=== PATIENT | male | born 1980 | race Caucasian/White ===

== ENCOUNTER 2016-09-27 17:38 | Inpatient (IN) | payer MEDICAID ==
--- NOTE | 2016-09-27 18:30 | C.PDOC ---
History Of Present Illness 35 y/o male presents to emergency department for heroin detox. Patient was pre- screened prior to arrival. He notes that he typically uses 10 bags of heroin per day and that last use was this morning. Patient reports previous detox in the past. Denies any other medical complaints, suicidal ideation, or homicidal ideation. Time Seen by Provider: 09/27/16 18:25 Chief Complaint (Nursing): Substance Abuse History Per: Patient History/Exam Limitations: no limitations Onset/Duration Of Symptoms: Persistent Current Symptoms Are (Timing): Still Present Modifying Factor(s): Narcotics Associated Symptoms: denies: Suicidal Thoughts, Suicidal Plan Recent travel outside of the [place]: No Past Medical History Reviewed: Historical Data, Nursing Documentation, Vital Signs Vital Signs: Last Vital Signs Temp 98.9 F 09/27/16 17:45 Pulse 93 H 09/27/16 17:45 Resp 16 09/27/16 17:45 BP 136/77 09/27/16 17:45 Pulse Ox 97 09/27/16 19:07 - Medical History PMH: No Chronic Diseases Family History: States: Unknown Family Hx - Social History Hx Alcohol Use: No Hx Substance Use: Yes - Immunization History Hx Tetanus Toxoid Vaccination: No Hx Influenza Vaccination: No Review Of Systems Except As Marked, All Systems Reviewed And Found Negative. Constitutional: Negative for: Fever, Chills Cardiovascular: Negative for: Chest Pain, Palpitations Respiratory: Negative for: Cough, Shortness of Breath Skin: Negative for: Rash Psych: Negative for: Suicidal ideation, Withdrawal Physical Exam - Physical Exam Appears: Non-toxic, No Acute Distress Skin: Normal Color, Warm, Dry Head: Atraumatic, Normacephalic Oral Mucosa: Moist Chest: Symmetrical Cardiovascular: Rhythm Regular Respiratory: Normal Breath Sounds, No Rales, No Rhonchi, No Wheezing Gastrointestinal/Abdominal: Soft, No Tenderness, No Guarding, No Rebound Back: Normal Inspection Extremity: Normal ROM, Capillary Refill (< 2 sec. ) Neurological/Psych: Oriented x3, Normal Speech, Normal Cognition ED Course And Treatment - Laboratory Results Result Diagrams: 09/27/16 18:33 09/27/16 18:33 Lab Interpretation: No Acute Changes Interpretation Of Abnormal: UDS + cocaine and opiates O2 Sat by Pulse Oximetry: 97 (RA) Pulse Ox Interpretation: Normal Progress Note: Labs and urinalysis ordered. Crisis eval in ER. Patient is medically cleared for detox admission. Disposition - Disposition Disposition: HOSPITALIZED Disposition Time: 20:09 Condition: STABLE - POA Present On Arrival: None - Clinical Impression Clinical Impression: Opiate dependence - Scribe Statement The provider has reviewed the documentation as recorded by the Scribe Ham Salinas All medical record entries made by the Scribe were at my direction and personally dictated by me. I have reviewed the chart and agree that the record accurately reflects my personal performance of the history, physical exam, medical decision making, and the department course for this patient. I have also personally directed, reviewed, and agree with the discharge instructions and disposition.
[2016-09-27 18:39] LABS: BASO % 0.4 % (0.0-2.0); EOS % 0.2 % (0.0-4.0); LYMPH # 1.4 K/uL (1.0-4.3); LYMPH % 19.7 % (20.0-40.0); MEAN CELL VOLUME 83.5 fL (80.0-94.0); MEAN CORPUSCULAR HEMOGLOBIN 29.6 pg (27.0-31.0); MEAN CORPUSCULAR HGB CONC 35.5 g/dL (33.0-37.0); MEAN PLATELET VOLUME 8.1 fL (7.2-11.7); MONO # 0.6 K/uL (0.0-0.8); MONO % 8.7 % (0.0-10.0); RED CELL DISTRIBUTION WIDTH 13.9 % (11.5-14.5)
[2016-09-27 18:44] LABS: RBC URINE 3 /hpf (0-3); TRANSITIONAL EPITHIAL < 1 /hpf (0-3); URINE BILIRUBIN NEGATIVE (NEGATIVE); URINE BLOOD NEGATIVE (NEGATIVE); URINE COLOR Yellow (YELLOW); URINE GLUCOSE (UA) NORMAL (Normal); URINE KETONE TRACE mg/dL (NEGATIVE); URINE LEUKOCYTE ESTERASE NEG Leu/uL (Negative); URINE PROTEIN NEGATIVE (NEGATIVE); WBC URINE < 1 /hpf (0-5)
[2016-09-27 18:48] LABS: CHLORIDE 99 mmol/L (98-107); POTASSIUM 3.8 mmol/L (3.6-5.2); SODIUM 137 mmol/L (132-148)
[2016-09-27 18:50] LABS: CARBON DIOXIDE 27 mmol/L (22-30); GFR AFRICAN-AMERICAN > 60
[2016-09-27 18:51] LABS: ALB/GLOB RATIO 1.2 (1.0-2.1); ALKALINE PHOSPHATASE 72 U/L (38-126); ALT/SGPT 40 U/L (21-72); AST/SGOT 26 U/L (17-59); BILIRUBIN,TOTAL 0.8 mg/dL (0.2-1.3); BLOOD UREA NITROGEN 13 mg/dL (9-20); CALCIUM 8.9 mg/dl (8.6-10.4); GLUCOSE,RANDOM 87 mg/dL (75-110); TOTAL PROTEIN 7.6 g/dL (6.3-8.3)
[2016-09-27 18:52] LABS: ALCOHOL SERUM < 10 mg/dl (0-10)
--- NOTE | 2016-09-27 20:24 | PCM.BM ---
<Belkis Mcmahon - Last Filed: 09/27/16 20:22> Treatment Plan Problems - Problems identified on initial assessmt Ineffective Coping Skills Date Initiated: 09/27/16 Assessment reference: NA Status: Active Treatment assets and liabiliti Patient Assests: ADL independent Patient Liabilities: substance abuse - Milieu Protocol Maintain good personal hygiene: daily Encourage regular showers, daily Remind patient to perform daily oral care, other Assist patient to perform ADL's Maintain personal safety: every shift Educate patient to report safety concerns to staff, every shift Monitor environment for contraband/sharps Medication safety: Monitor for expected outcome, potential side effects: every shift, Assess barriers to learning: every shift, Assess readiness for medication education: every shift <Kalpana Abdul - Last Filed: 09/28/16 12:16> Family Contact Family involvement: Famliy/SO not involved Family contact: Patient agrees to contact - Goals for Treatment Patient goals for treatment: Transition from detox to NA meetings attended with sister. Discharge/Continuing Care - Education Needs Education Needs: Patient Medication, Patient Diagnosis/Disease Process, Patient Coping Skills, Patient Anger Management skills, Patient Placement options, Patient Community resources - Discharge Discharge Criteria: No longer exhibiting s/s of withdrawal, Reduction of target symptoms Discharge to:: Home - Treatment Team Participation Patient/Family/SO Statement: 09/28/16 12:17 "I been to many detoxes and rehabs before. I don't wanna be on any maintenance meds that are impossible to get off of. I don't wanna go to counseling where I' m surrounded by people who are mandated to be there for probation and parole. I know what I have to do--I gotta just do it". Discussed with Family/SO: No Was Patient/Family/SO present at Treatment Team Meeting: Yes <Dilip Jiménez - Last Filed: 09/28/16 23:55> - Diagnosis (1) Opioid use disorder, severe, dependence Status: Acute Interventions: 09/28/16 23:55 * Assess 7x/week regarding severity of withdrawal * Educate regarding risks, benefits, side effects and alternatives of medications * Use Motivational Interviewing for abstinence * Use CBT for relapse prevention * Medication management for withdrawal symptoms * Encourage medication assisted treatment *
[2016-09-28] MEDS ORDERED: Aluminum Hydroxide/Magnesium Hydroxide Susp (30 mL) PO PRN (00:22)
--- NOTE | 2016-09-28 15:46 | PCM.PSYCH ---
Initial Psychiatric Evaluation - Initial Psychiatric Evaluation Type of Admission: Voluntary Chief Complaint (in patient's own words): "I need help for my addiction" Patient's Reaction to Hospitalization: cooperative History of Present Illness and Precipitating Events: The patient was seen, the chart was reviewed and the case was discussed with staff and attending. Mr Valenzuela is a 35 year old male who presented to the ED for heroin detox. During our interview he seemed slightly restless but he stated he was feeling okay and that he slept well the previous night. He stated that his last use was yesterday morning. He averages 10 bag of heroin per day via injection. His first heroin use was 10 years ago. He's had 10 previous detox visits and 4 previous rehab attempts. He said he doesn't want maintenance medication treatment and prefers NA upon discharge. He said he also uses cocaine but denied marijuana, lsd, pcp, ecstasy use. 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; current smoker; social drinker Fam Hx: denies Legal: no legal issues; not on parole Current Medications: Active Medications Generic Name Dose Route Start Last Admin Trade Name Freq PRN Reason Stop Dose Admin Acetaminophen 650 mg 09/28/16 00:22 Tylenol 325mg Tab PO Q4H PRN Fever greater than 101 F Al Hydrox/Mg Hydrox/Simethicone 30 ml 09/28/16 00:22 Maalox 30 Ml PO TID PRN Indigestion / Heartburn Clonidine HCl 0.1 mg 09/28/16 00:22 Catapres PO Q8 PRN COWS Score More or Equal to 5 Gabapentin 100 mg 09/28/16 10:00 09/28/16 14:45 Neurontin PO 100 mg TID ANDRES Administration Hydroxyzine HCl 25 mg 09/28/16 00:23 09/28/16 10:13 Atarax PO 25 mg Q6 PRN Administration Agitation Loperamide HCl 2 mg 09/28/16 00:22 Imodium PO Q8 PRN Diarrhea Nicotine 1 patch 09/28/16 12:00 09/28/16 15:18 Nicoderm Cq TD Not Given DAILY ANDRES Ondansetron HCl 4 mg 09/28/16 00:22 Zofran Tab PO Q8 PRN Nausea/Vomiting Trazodone HCl 50 mg 09/27/16 20:30 09/27/16 22:02 Desyrel PO 50 mg HS PRN Administration Insomnia Past Psychiatric History - Past Psychiatric History Previous Treatment History: Inpatient Prior Psychiatric Treatment: detox 10x; rehab 4x History of Abuse: heroin; cocaine; History of ETOH/Drug Use: denies History of Family Illness: denies Pertinent Medical Hx (Current Medical&Sleep Prob, Allergies): Allergies Allergy/AdvReac Type Severity Reaction Status Date / Time No Known Allergies Allergy Verified 09/27/16 17:44 No Known Home Med 09/27/16 Review of Systems - Psychiatric Psychiatric: Anxiety. absent: Auditory Hallucinations, Depression, Homicidal Ideation, Paranoia, Suicidal Ideation, Visual Hallucinations Mental Status Examination - Personal Presentation Personal Presentation: Looks stated age - Affect Affect: Broad - Motor Activity Motor Activity: Calm - Reliability in Providing Information Reliability in Providing Information: Good - Speech Speech: Organized - Mood Mood: Neutral - Formal Thought Process Formal Thought Process: No Impairment - Obsessions/Compulsions Obsessions: No Compulsions: No - Cognitive Functions Orientation: Person, Place, Situation, Time Sensorium: Alert Attention/Concentration: Attentive Abstract Thinking: Stebbins Estimate of Intelligence: Average Judgement: Intact, as evidence by: Insight regarding need for hospitalization Memory: Recent intact, as evidence by: Ability to recall events of the day - Risk Risk: Withdrawal - Strength & Assets Inventory Strength & Assets Inventory: Family support - Limitations Limitations: Other ("I deal drugs") DSM 5 DX - DSM 5 DSM 5 Diagnosis: opiod use disorder opioid withdrawal - Recommended/Plan of Treatment Treatment Recommendations and Plan of Treatment: Hold Subutex for now as pt not scoring on COWS Gabapentin for augmentation nicotine patch for smoking cessation As needed meds and vitamins Attend groups and activities IN for abstinence and CBT for relapse prevention Support and psychoeducation Consider and encourage MAT Refer to after care; coordinate with SW time spent: 33 mins Projected ELOS: 4-5 nights Prognosis: good with treatment - Smoking Cessation Smoking Cessation Initiated: Yes
[2016-09-28] MEDS ORDERED: Buprenorphine Hydrochloride 2 mg SL ONE ×2 (16:21→17:20)
[2016-09-29] MEDS ORDERED: Buprenorphine Hydrochloride 2 mg SL SCH (09:30)
[2016-09-29] MEDS: Buprenorphine Hydrochloride 2 mg SL SCH (10:17)
--- NOTE | 2016-09-29 15:37 | PCM.PYCHPN ---
Psychiatric Progress Note - Psychiatric Progress Note Patient seen today, length of contact: 18 mins Patient Chief Complaint: "I'm doing a little better today" Problems Identified/Issues Discussed: The pt is seen, chart reviewed, case discussed with staff. The patient states sleeping well after receiving medication The patient states that he is still experiencing wxw sxs Support given, CBT and TX used briefly No new symptoms reported, improving slowly and needs more time No SEs from medications, risks discussed. After care discussed; patient only interested in meeting only, nothing else Mental Status Examination - Cognitive Function Orientation: Person, Place, Situation, Time Memory: Intact Attention: WNL Concentration: WNL Association: [facility] Fund of Knowledge: [facility] Decription of patient's judgement and insights: good judgement as need for hospitalization - Mood Mood: Neutral - Affect Affect: Broad - Speech Speech: Appropriate - Formal Thought Process Formal Thought Process: No Impairment - Suicidal Ideation Suicidal Ideation: No - Homicidal Ideation Homicidal Ideation: No Goal/Treatment Plan - Goal/Treatment Plan Need for Continued Stay: Discharge may exacerbated symptoms Progress Toward Problem(s) and Goals/Treatment Plan: Subutex taper Gabapentin for augmentation nicotine patch for smoking cessation As needed meds and vitamins Attend groups and activities TX for abstinence and CBT for relapse prevention Support and psychoeducation Consider and encourage MAT Refer to after care; coordinate with SW time spent: 18 mins
[2016-09-30] MEDS: Buprenorphine Hydrochloride 2 mg SL SCH (09:57)
--- NOTE | 2016-09-30 22:55 | PCM.PYCHPN ---
Psychiatric Progress Note - Psychiatric Progress Note Patient seen today, length of contact: 18 mins Patient Chief Complaint: I'm doing better Problems Identified/Issues Discussed: The pt is seen, chart reviewed, case discussed with staff. Support given, CBT and WI used briefly No new symptoms reported, improving slowly and needs more time No SEs from medications, risks discussed. After care discussed Diagnostic Results: No new labs DSM 5 Symptoms Update: opiod use disorder opioid withdrawal Medication Change: Yes (SUBETEX TAPER) Medical Record Reviewed: Yes Mental Status Examination - Cognitive Function Orientation: Person, Place, Situation, Time Memory: Intact Attention: WNL Concentration: WNL Association: [facility] Fund of Knowledge: [facility] Decription of patient's judgement and insights: fair/fair - Mood Mood: Neutral - Affect Affect: Broad - Speech Speech: Appropriate - Formal Thought Process Formal Thought Process: No Impairment Psychotic Thoughts and Behaviors: no A/V/H - Suicidal Ideation Suicidal Ideation: No - Homicidal Ideation Homicidal Ideation: No Goal/Treatment Plan - Goal/Treatment Plan Need for Continued Stay: Discharge may exacerbated symptoms Progress Toward Problem(s) and Goals/Treatment Plan: Continue medications Support and psychoeducation daily Attend groups and activities daily After care planning by CONNIE - Smoking Cessation Smoking Cessation Initiated: Yes
[2016-10-01 06:15] VITALS: TEMP 98.1
[2016-10-01 08:30] VITALS: BP 117/71; PULSE 65; RESP 20; O2SAT 100
[2016-10-01] MEDS: Buprenorphine Hydrochloride 2 mg SL SCH (09:16)
--- NOTE | 2016-10-01 17:43 | PCM.PYCHDC ---
Mental Status Examination - Mental Status Examination Orientation: Person, Place, Situation, Time Memory: Intact Mood: Neutral Affect: Broad Speech: Appropriate Attention: WNL Concentration: WNL Association: WNL Fund of Knowledge: WNL Formal Thought Process: No Impairment Description of patient's judgement and insight: fair/fair Psychotic Thoughts and Behaviors: no A/V/H Suicidal Ideation: No Current Homicidal Ideation?: No Discharge Summary - Discharge Note Reason for Hospitalization: Mr Valenzuela is a 35 year old male who presented to the ED for heroin detox. During our interview he seemed slightly restless but he stated he was feeling okay and that he slept well the previous night. He stated that his last use was yesterday morning. He averages 10 bag of heroin per day via injection. His first heroin use was 10 years ago. He's had 10 previous detox visits and 4 previous rehab attempts. He said he doesn't want maintenance medication treatment and prefers NA upon discharge. He said he also uses cocaine but denied marijuana, lsd, pcp, ecstasy use. 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 Reason for request. 2. Findings. 3. Follow-up Consultations: None Summary of Hospital Course include:: 1. Description of specific treatment plan utilized for patients during their course of treatmen. 2. Summarize the time- course for resolution of acute symptoms and/or regressed behaviors. 3. Describe issues identified and worked on during hospitalization. 4. Describe medication utilized. 5. Describe medical problems identified and treated. 6. Reassessment of suicide risk Summary of Hospital Course: The pt was admitted and started on treatment with psychotherapy, support, psychoeducation and medications. AK and CBT used. The pt attended groups and activities, as well as milieu therapy. All the risks and benefits of medications are discussed and the patient understood and agreed. The pt improved with the treatments provided. After care discussed with the patient. - Diagnosis (1) Opiate dependence Status: Resolved (2) Opioid use disorder, severe, dependence Status: Resolved - Final Diagnosis (DSM 5) Condition upon Discharge: STABLE Disposition: HOME/ ROUTINE Follow-up Treatment Plan: Continue below medications after discharge. Follow after care plan as discussed. Use relapse prevention skills Return to ER or call 911 if suicidal, homicidal or symptoms relapse. Stay away from stress, alcohol and drugs. See primary doctor once a year. - Smoking Cessation Smoking Cessation Medication prescribed: Yes - Antipsychotic Medications Pt discharged on 2 or more routine antipsychotic medications: No
== END 2016-10-01 12:15 | disposition home or self-care (01) | DRG 745 ==
LOC: C.ER 17:38 → C.7D 20:08
PROVIDERS: ADMIT Psychiatry & Neurology Psychiatry; ATTEND Psychiatry & Neurology Psychiatry
PROC: HZ2ZZZZ Detoxification Services for Substance Abuse Treatment (ICD-10-PCS; principal; 2016-09-27)
PROC: HZ59ZZZ Individual Psychotherapy for Substance Abuse Treatment, Supportive (ICD-10-PCS; 2016-09-27)
PROC: HZ46ZZZ Group Counseling for Substance Abuse Treatment, Psychoeducation (ICD-10-PCS; 2016-09-27)
DX: F11.23 Opioid dependence with withdrawal (principal); F17.210 Nicotine dependence, cigarettes, uncomplicated

== ENCOUNTER 2017-01-27 17:06 | Inpatient (IN) | payer MEDICAID ==
[2017-01-27 18:36] LABS: BASO % 0.2 % (0.0-2.0); EOS # 0.1 K/uL (0.0-0.7); EOS % 0.9 % (0.0-4.0); HEMATOCRIT 44.1 % (35.0-51.0); LYMPH # 1.5 K/uL (1.0-4.3); LYMPH % 25.7 % (20.0-40.0); MEAN CORPUSCULAR HEMOGLOBIN 29.6 pg (27.0-31.0); MEAN CORPUSCULAR HGB CONC 33.7 g/dL (33.0-37.0); MEAN PLATELET VOLUME 7.7 fL (7.2-11.7); MONO # 0.6 K/uL (0.0-0.8); MONO % 10.7 % (0.0-10.0); NRBC % 0.1 % (0.0-2.0); RED CELL DISTRIBUTION WIDTH 13.9 % (11.5-14.5)
[2017-01-27 18:45] LABS: MEAN CELL VOLUME 87.8 fL (80.0-94.0)
[2017-01-27 18:51] LABS: ALB/GLOB RATIO 1.4 (1.0-2.1); ALCOHOL SERUM < 10 mg/dl (0-10); ALKALINE PHOSPHATASE 52 U/L (38-126); ALT/SGPT 40 U/L (21-72); AST/SGOT 16 U/L (17-59); BILIRUBIN,TOTAL 0.5 mg/dL (0.2-1.3); BLOOD UREA NITROGEN 18 mg/dL (9-20); CALCIUM 8.9 mg/dl (8.6-10.4); CARBON DIOXIDE 31 mmol/L (22-30); CHLORIDE 105 mmol/L (98-107); GFR AFRICAN-AMERICAN > 60; GLUCOSE,RANDOM 102 mg/dL (75-110); SODIUM 146 mmol/L (132-148); TOTAL PROTEIN 7.2 g/dL (6.3-8.3)
[2017-01-27 20:03] LABS: RBC URINE 2 /hpf (0-3); URINE BACTERIA RARE (<OCC); URINE BILIRUBIN NEGATIVE (NEGATIVE); URINE BLOOD NEGATIVE (NEGATIVE); URINE COLOR Amber (YELLOW); URINE GLUCOSE (UA) NORMAL (Normal); URINE KETONE TRACE mg/dL (NEGATIVE); URINE LEUKOCYTE ESTERASE NEG Leu/uL (Negative); URINE PROTEIN 1+ mg/dL (NEGATIVE); URINE UROBILINOGEN NORMAL mg/dL (0.2-1.0); WBC URINE 6 /hpf (0-5)
--- NOTE | 2017-01-27 23:53 | C.PDOC ---
History Of Present Illness Pt is here requesting detox from Heroin. Time Seen by Provider: 01/27/17 17:28 Chief Complaint (Nursing): Substance Abuse History Per: Patient Onset/Duration Of Symptoms: Days Current Symptoms Are (Timing): Still Present Suicide/Self Injury Attempted (Context): None Modifying Factor(s): Narcotics, Cocaine Severity: Moderate Associated Symptoms: denies: Suicidal Thoughts, Suicidal Plan Additional History Per: Prior Records Past Medical History Reviewed: Historical Data, Nursing Documentation, Vital Signs Vital Signs: Last Vital Signs Temp 98.8 F 01/28/17 00:29 Pulse 77 01/28/17 00:29 Resp 20 01/28/17 00:29 BP 107/66 01/28/17 00:29 Pulse Ox 97 01/28/17 00:29 - Medical History PMH: No Chronic Diseases - [facility] Procedures DETOXIFICATION SERVICES FOR SUBSTANCE ABUSE TREATMENT (09/27/16) GROUP HARNESS FITTER FOR SUBSTANCE ABUSE TREATMENT, PSYCHOEDUCATION (09/27/16) INDIV PSYCHOTHERAPY FOR SUBSTANCE ABUSE TREATMENT, SUPPORT (09/27/16) Family History: States: Unknown Family Hx - Social History Hx Alcohol Use: No Hx Substance Use: Yes (IVDU Heroin) - Immunization History Hx Tetanus Toxoid Vaccination: No Hx Influenza Vaccination: No Review Of Systems Except As Marked, All Systems Reviewed And Found Negative. Constitutional: Negative for: Fever Cardiovascular: Negative for: Chest Pain Respiratory: Negative for: Shortness of Breath Gastrointestinal: Negative for: Vomiting, Abdominal Pain Musculoskeletal: Negative for: Neck Pain Neurological: Negative for: Weakness, Numbness, Seizures Psych: Negative for: Psychosis Physical Exam - Physical Exam Appears: Non-toxic, No Acute Distress Skin: Normal Color, Warm, Dry Head: Atraumatic, Normacephalic Eye(s): bilateral: PERRL, EOMI Neck: Normal ROM, Supple Cardiovascular: Rhythm Regular Respiratory: Normal Breath Sounds, No Accessory Muscle Use Gastrointestinal/Abdominal: Soft, No Tenderness Extremity: Normal ROM, Other (Track damon on arms) Neurological/Psych: Oriented x3, Normal Motor, Normal Sensation ED Course And Treatment - Laboratory Results Result Diagrams: 01/27/17 18:33 01/27/17 18:33 Lab Interpretation: No Acute Changes O2 Sat by Pulse Oximetry: 98 Pulse Ox Interpretation: Normal Progress Note: Pt is medically stable for detox admission. Disposition Counseled Patient/Family Regarding: Studies Performed, Diagnosis - Disposition Disposition: HOSPITALIZED Disposition Time: 00:45 Condition: STABLE - Clinical Impression Clinical Impression: Opioid dependence Decision To Admit - Pt Status Changed To: Hospital Disposition Of: Inpatient - Admit Certification Admit to Inpatient:: After my assessment, the patient will require hospitalization for at least two midnights. This is because of the severity of symptoms shown, intensity of services needed, and/or the medical risk in this patient being treated as an outpatient. - InPatient: Physician Admission Certification: I certify that this patient requires 2 or more midnights of care for the following reason:: Detox - . Bed Request Type: Detox Admitting Physician: Elena Garzon Patient Diagnosis: Opioid dependence
--- NOTE | 2017-01-28 02:09 | PCM.BM ---
<Belkis Mcmahon M - Last Filed: 01/28/17 02:08> Treatment Plan Problems - Problems identified on initial assessmt Ineffective Coping Skills Date Initiated: 01/28/17 Time Initiated: 02:08 Assessment reference: NA Status: Active Treatment assets and liabiliti Patient Assests: ADL independent Patient Liabilities: substance abuse - Milieu Protocol Maintain good personal hygiene: daily Encourage regular showers, daily Remind patient to perform daily oral care, other Assist patient to perform ADL's Maintain personal safety: every shift Educate patient to report safety concerns to staff, every shift Monitor environment for contraband/sharps Medication safety: Monitor for expected outcome, potential side effects: every shift, Assess barriers to learning: every shift, Assess readiness for medication education: every shift <Leo Spencer M - Last Filed: 01/28/17 20:30> - Diagnosis (1) Opioid use disorder, severe, dependence Status: Resolved Interventions: 01/28/17 20:25 Assess 7x/week regarding severity of withdrawal Educate regarding risks, benefits, side effects and alternatives of medications Use Motivational Interviewing for abstinence Use CBT for relapse prevention Medication management for withdrawal symptoms Encourage medication assisted treatment (2) Cocaine use disorder, mild, abuse Status: Acute Interventions: 01/28/17 20:30 Assess 7x/week regarding severity of withdrawal Educate regarding risks, benefits, side effects and alternatives of medications Use Motivational Interviewing for abstinence Use CBT for relapse prevention Medication management for withdrawal symptoms Encourage medication assisted treatment
--- NOTE | 2017-01-28 20:36 | PCM.PSYCH ---
Initial Psychiatric Evaluation - Initial Psychiatric Evaluation Type of Admission: Voluntary Legal Status: Capacity Chief Complaint (in patient's own words): I am here for the treatment of my substance use. History of Present Illness and Precipitating Events: Patient is a 36 years old, single, unemployed male with no previous psychiatric history was admitted for the treatment of withdrawing from heroin and cocaine. Reported he started using heroin at 25 years of age, increase gradually up to 15 bags of heroin daily, IV, last used yesterday. His longest. Of abstinence was 19 months from [id number]. He relapsed in 2015 for unknown reason. History of 10 detox and 7 rehabs. Started using cocaine at 20 years of age, using 1 g of cocaine 3 times per week , smoking. Last used 3 days ago. Smokes 1 pack of cigarettes daily and wants nicotine patch. Patient was born in [place], has high school graduation, not working. Never and has no children, lives with mother and sister. Patient has history of incarceration for drug charges from 2007 to 2012. His height is 6 feet 1 inches and weight is 200 pounds. Current Medications: Active Medications Generic Name Dose Route Start Last Admin Trade Name Freq PRN Reason Stop Dose Admin Clonidine HCl 0.1 mg 01/28/17 11:06 Catapres PO Q8 PRN COWS Score More or Equal to 5 Dicyclomine HCl 20 mg 01/28/17 11:09 Bentyl PO Q8 PRN Other Gabapentin 300 mg 01/28/17 14:00 01/28/17 18:35 Neurontin PO 300 mg TID ANDRES Administration Hydroxyzine HCl 25 mg 01/28/17 02:43 01/28/17 18:35 Atarax PO 25 mg Q6H PRN Administration Agitation Loperamide HCl 2 mg 01/28/17 11:48 Imodium PO Q8 PRN Diarrhea Methadone HCl 15 mg 01/29/17 10:00 Methadone PO 01/29/17 10:01 ONCE ONE Nicotine 1 patch 01/28/17 11:30 01/28/17 11:56 Nicoderm Cq TD Not Given DAILY ANDRES Ondansetron HCl 4 mg 01/28/17 11:06 Zofran Tab PO Q8 PRN Nausea/Vomiting Trazodone HCl 150 mg 01/28/17 22:00 Desyrel PO HS PRN Insomnia Past Psychiatric History - Past Psychiatric History Previous Treatment History: None History of Abuse: None reported History of ETOH/Drug Use: See HPI History of Family Illness: None reported Pertinent Medical Hx (Current Medical&Sleep Prob, Allergies): Allergies Allergy/AdvReac Type Severity Reaction Status Date / Time No Known Allergies Allergy Verified 01/27/17 17:15 No Known Home Med 09/27/16 Review of Systems - Psychiatric Psychiatric: Other Mental Status Examination - Personal Presentation Personal Presentation: Looks stated age - Affect Affect: Other - Motor Activity Motor Activity: Calm - Reliability in Providing Information Reliability in Providing Information: Fair - Speech Speech: Organized, Relevant - Mood Mood: Anxious - Formal Thought Process Formal Thought Process: No Impairment - Hallucinations/Delusions Hallucinations: Other (None report) Delusions: Other - Obsessions/Compulsions Obsessions: None Compulsions: None - Cognitive Functions Orientation: Person, Place, Situation, Time Sensorium: Alert Attention/Concentration: Attentive Abstract Thinking: [place] Estimate of Intelligence: Average Judgement: Intact, as evidence by: Insight regarding need for hospitalization Memory: Recent intact, as evidence by: 3/3 object recall, Remote intact, as evidenced by: Ability to recall historical events - Risk Risk: Diminished functioning - Strength & Assets Inventory Strength & Assets Inventory: Family support, Cooperative - Limitations Limitations: Other DSM 5 DX - DSM 5 DSM 5 Diagnosis: Opioid use disorder severe Cocaine use disorder - Recommended/Plan of Treatment Treatment Recommendations and Plan of Treatment: Patient education Supportive therapy Methadone taper for opiate withdrawal symptoms. Other as needed medications. Nicotine patch. Projected ELOS: 4-5 days Discharge Plan and Discharge Criteria: Patient wants to go to [facility] after discharge from the hospital for follow-up care. - Smoking Cessation Smoking Cessation Initiated: Yes
--- NOTE | 2017-01-29 12:32 | PCM.PYCHPN ---
Psychiatric Progress Note - Psychiatric Progress Note Patient seen today, length of contact: 17 min Patient Chief Complaint: "I can't sleep well" Problems Identified/Issues Discussed: The pt is seen, chart reviewed, case discussed with staff. The pt is compliant with medications and reports no side-effects. Symptoms are improving but needs more time to stabilize. After care discussed, support and psychoeducation given. Wants to go to [facility] but he is worried about sleeping meds a little Medication Change: Yes (add remeron, detox changes daily) Medical Record Reviewed: Yes Mental Status Examination - Cognitive Function Orientation: Person, Place, Situation, Time Memory: Intact Attention: WNL Concentration: WNL Association: WN Fund of Knowledge: WNL - Mood Mood: Anxious - Affect Affect: Constricted, Other - Speech Speech: Appropriate - Formal Thought Process Formal Thought Process: No Impairment - Suicidal Ideation Suicidal Ideation: No - Homicidal Ideation Homicidal Ideation: No Goal/Treatment Plan - Goal/Treatment Plan Need for Continued Stay: Discharge may exacerbated symptoms, Severe functional impairment Progress Toward Problem(s) and Goals/Treatment Plan: Methadone detox Gabapentin for augmentation As needed medications Increase trazodone and add remeron for insomnia, depressive sxs Attend groups and activities Supportive therapy and psychoeducation CT for abstinence CBT for relapse prevention Encourage MAT Refer to rehab or IOP, and self-help groups Smoking cessation with CT Nicotine patch Estimated Date of D/C: 02/01/17
--- NOTE | 2017-01-30 14:16 | PCM.PYCHPN ---
Psychiatric Progress Note - Psychiatric Progress Note Patient seen today, length of contact: 17 min Patient Chief Complaint: "Anxious" Problems Identified/Issues Discussed: The pt is seen, chart reviewed, case discussed with staff. Support given, CBT and [place] used briefly No new symptoms reported, improving slowly and needs more time No SEs from medications, risks discussed. After care discussed - [facility]. He agreed to not take Traz. there as they do not allow higher than 50 or 100 mg Will cont. with remeron Medication Change: Yes (detox changes daily) Medical Record Reviewed: Yes Mental Status Examination - Cognitive Function Orientation: Person, Place, Situation, Time Memory: Intact Attention: WNL Concentration: WNL Association: WN Fund of Knowledge: WN - Mood Mood: Anxious - Affect Affect: Constricted, Other - Speech Speech: Appropriate - Formal Thought Process Formal Thought Process: No Impairment - Suicidal Ideation Suicidal Ideation: No - Homicidal Ideation Homicidal Ideation: No Goal/Treatment Plan - Goal/Treatment Plan Need for Continued Stay: Discharge may exacerbated symptoms, Severe functional impairment Progress Toward Problem(s) and Goals/Treatment Plan: Methadone detox Gabapentin for augmentation As needed medications Increase trazodone and add remeron for insomnia, depressive sxs Attend groups and activities Supportive therapy and psychoeducation [place] for abstinence CBT for relapse prevention Encourage MAT Refer to rehab or IOP, and self-help groups Smoking cessation with [place] Nicotine patch Estimated Date of D/C: 01/31/17 If changed, why: going to [facility]
[2017-01-30 16:43] VITALS: O2SAT 97
[2017-01-31 08:43] VITALS: BP 129/71; PULSE 66; RESP 20; TEMP 97.6
--- NOTE | 2017-01-31 10:18 | PCM.PYCHPN ---
Psychiatric Progress Note - Psychiatric Progress Note Patient seen today, length of contact: 17 min Medication Change: Yes (detox changes daily) Medical Record Reviewed: Yes Mental Status Examination - Cognitive Function Orientation: Person, Place, Situation, Time Memory: Intact Attention: WNL Concentration: WNL Association: WNL Fund of Knowledge: WNL - Mood Mood: Anxious - Affect Affect: Constricted, Other - Speech Speech: Appropriate - Formal Thought Process Formal Thought Process: No Impairment - Suicidal Ideation Suicidal Ideation: No - Homicidal Ideation Homicidal Ideation: No Goal/Treatment Plan - Goal/Treatment Plan Need for Continued Stay: Discharge may exacerbated symptoms, Severe functional impairment Estimated Date of D/C: 01/31/17
--- NOTE | 2017-01-31 10:20 | PCM.PYCHDC ---
Mental Status Examination - Mental Status Examination Orientation: Person, Place, Situation, Time Memory: Intact Mood: Neutral Affect: Constricted Speech: Soft Attention: WNL Concentration: WNL Association: WNL Fund of Knowledge: WNL Formal Thought Process: No Impairment Description of patient's judgement and insight: good, fair Psychotic Thoughts and Behaviors: denies any AVH Suicidal Ideation: No Current Homicidal Ideation?: No Discharge Summary - Discharge Note Reason for Hospitalization: Patient is a 36 years old, single, unemployed male with no previous psychiatric history was admitted for the treatment of withdrawing from heroin and cocaine. Reported he started using heroin at 25 years of age, increase gradually up to 15 bags of heroin daily, IV, last used yesterday. His longest. Of abstinence was 19 months from [id number]. He relapsed in 2015 for unknown reason. History of 10 detox and 7 rehabs. Started using cocaine at 20 years of age, using 1 g of cocaine 3 times per week , smoking. Last used 3 days ago. Smokes 1 pack of cigarettes daily and wants nicotine patch. Patient was born in [place], has high school graduation, not working. Never and has no children, lives with mother and sister. Patient has history of incarceration for drug charges from 2007 to 2012. His height is 6 feet 1 inches and weight is 200 pounds. Consultations:: List each consultation separately and include: 1. Reason for request. 2. Findings. 3. Follow-up Summary of Hospital Course include:: 1. Description of specific treatment plan utilized for patients during their course of treatmen. 2. Summarize the time- course for resolution of acute symptoms and/or regressed behaviors. 3. Describe issues identified and worked on during hospitalization. 4. Describe medication utilized. 5. Describe medical problems identified and treated. 6. Reassessment of suicide risk Summary of Hospital Course: During the course of his stay, patient (pt) started progressively improving and he no longer remained irritable, depressed, and anxious. His mood and anxiety were improved and he started attending groups and meetings and started socializing. Patient denied any feelings of hopelessness, helplessness, and worthlessness, denied any problem with the sleep or appetite, denied suicidal ideation or homicidal ideation. Pt denied any auditory or visual hallucinations. Some changes were made in his current medications and patient was discharged on following medications. He tolerated these medications very well and denied any side effects. [facility] [place]. - Final Diagnosis (DSM 5) Condition upon Discharge: STABLE DSM 5: Opioid use disorder severe Cocaine use disorder Disposition: HOME/ ROUTINE Follow-up Treatment Plan: Education: Pt was educated and counseled about the risks and benefits of taking and not taking medications. Pt was educated and counseled about the risks of drinking and abusing drugs. Pt was educated and counseled to go to the ER or call 911 if pt develop suicidal ideation or homicidal ideation, worsening of symptoms or severe side effects of the meds. Prescriptions/Medication Reconciliation: Gabapentin [Neurontin] 300 mg PO TID #90 cap Mirtazapine [Remeron] 30 mg PO HS #30 tab - Smoking Cessation Smoking Cessation Medication prescribed: No - Antipsychotic Medications Pt discharged on 2 or more routine antipsychotic medications: No
== END 2017-01-31 10:50 | disposition home or self-care (01) | DRG 745 ==
LOC: C.ER 17:06 → C.9E 01-28 00:45 → C.7D 01-28 02:02
PROVIDERS: ADMIT Psychiatry & Neurology Psychiatry; ATTEND Psychiatry & Neurology Psychiatry
PROC: HZ2ZZZZ Detoxification Services for Substance Abuse Treatment (ICD-10-PCS; principal; 2017-01-28)
PROC: HZ59ZZZ Individual Psychotherapy for Substance Abuse Treatment, Supportive (ICD-10-PCS; 2017-01-28)
PROC: HZ46ZZZ Group Counseling for Substance Abuse Treatment, Psychoeducation (ICD-10-PCS; 2017-01-28)
PROC: HZ90ZZZ Pharmacotherapy for Substance Abuse Treatment, Nicotine Replacement (ICD-10-PCS; 2017-01-28)
DX: F11.23 Opioid dependence with withdrawal (principal); F14.23 Cocaine dependence with withdrawal; F17.210 Nicotine dependence, cigarettes, uncomplicated; F41.9 Anxiety disorder, unspecified; G47.00 Insomnia, unspecified